=== PATIENT | male | born 1985 | race Caucasian/White ===

== ENCOUNTER 2018-08-30 18:46 | Inpatient (IN) | payer MEDICARE, OTHER ==
[2018-08-30] MEDS ORDERED: SODIUM CHLORIDE 1,000 ML IV STA (21:28)
--- NOTE | 2018-08-30 21:28 | PDOC ---
*Physical Exam - Vital Signs Last Vital Signs Temp Pulse Resp BP Pulse Ox 98.4 F 69 18 141/81 95 08/30/18 18:53 08/30/18 18:53 08/30/18 18:53 08/30/18 18:53 08/30/18 18:53 ED Treatment Course - LABORATORY CBC & Chemistry Diagram: 08/30/18 22:11 08/30/18 22:11 Medical Decision Making - Medical Decision Making 08/30/18 21:28 Patient seen by the advanced practice provider under my direct supervision. Ancillary testing reviewed as necessary. I agree with plan as outlined by the advanced practice provider. *DC/Admit/Observation/Transfer Diagnosis at time of Disposition: Kidney stone on right side Abdominal pain Qualifiers: Abdominal location: right lower quadrant Qualified Code(s): R10.31 - Right lower quadrant pain - Referrals - Patient Instructions - Post Discharge Activity
--- NOTE | 2018-08-30 21:28 | PDOC ---
History of Present Illness - General Chief Complaint: Pain, Acute Stated Complaint: STOMACH PAIN RIGHT SIDE Time Seen by Provider: 08/30/18 21:23 History Source: Patient - History of Present Illness Initial Comments: 08/30/18 23:05 33-year-old male complaining of right lower quadrant pain for the last 2 days with nausea, anorexia and RLQ pain x 2 worsening over the last two days. Denies fevers/chills, urinary symptoms, testicular pain, diarrhea or constipation. 08/30/18 23:10 Past History - Past Medical History Allergies/Adverse Reactions: Allergies Allergy/AdvReac Type Severity Reaction Status Date / Time No Known Allergies Allergy Verified 06/22/15 13:52 Home Medications: Ambulatory Orders Codeine/Butalbit/Acetamin/Caff [Fioricet *w/ Codeine*] 1 tab PO Q8H #30 capsule 06/22/15 Ondansetron [Zofran *Odt*] 8 mg SL TID #30 od.tablet 06/22/15 COPD: No DVT: No Dialysis: No - Surgical History Cardiac Surgery: No Gastric Stapling: No - Immunization History Immunization Up to Date: No - Suicide/Smoking/Psychosocial Hx Smoking History: Current every day smoker Have you smoked in the past 12 months: Yes Number of Cigarettes Smoked Daily: 10 Information on smoking cessation initiated: No Hx Alcohol Use: No Drug/Substance Use Hx: No Substance Use Type: None Review of Systems - Review of Systems Able to Perform ROS?: Yes Is the patient limited Estonian proficient: No HEENTM: No: Symptoms Reported, See HPI, Eye Pain, Blurred Vision, Tearing, Recent change in vision, Double Vision, Cataracts, Ear Pain, Ocular Prothesis, Ear Discharge, Nose Pain, Nose Congestion, Tinnitus, Nose Bleeding, Hearing Loss , Throat Pain, Throat Swelling, Mouth Pain, Dental Problems, Difficulty Swallowing, Mouth Swelling, Other Respiratory: No: Symptoms reported, See HPI, Cough, Orthopnea, Shortness of Breath, SOB with Exertion, SOB at Rest, Stridor, Wheezing, Productive cough, Hemoptysis, Other ABD/GI: Yes: Nausea, Vomiting, Abdominal cramping. No: Symptoms Reported, See HPI, Abdominal Distended, Abd. Pain w/ defecation, Blood Streaked Bowels, Constipated, Diarrhea, Difficulty Swallowing, Poor Appetite, Poor Fluid Intake, Rectal Bleeding, Indigestion, Tarry Stools, Other : No: Symptoms Reported, See HPI, Burning, Dysuria, Discharge, Frequency, Flank Pain, Hematuria, Incontinence, Pain, Urgency, Testicular Mass, Testicular Swelling, Lesions, Testicular Pain, Other Musculoskeletal: No: Symptoms Reported, See HPI, Back Pain, Gout, Joint Pain, Joint Swelling, Muscle Pain, Muscle Weakness, Neck Pain, Joint Stiffness, Other *Physical Exam - Vital Signs Last Vital Signs Temp Pulse Resp BP Pulse Ox 98.4 F 69 18 141/81 95 08/30/18 18:53 08/30/18 18:53 08/30/18 18:53 08/30/18 18:53 08/30/18 18:53 - Physical Exam General Appearance: Yes: Appropriately Dressed Respiratory/Chest: positive: Lungs Clear, Normal Breath Sounds Cardiovascular: positive: Regular Rhythm, Regular Rate Gastrointestinal/Abdominal: positive: Normal Bowel Sounds, Tender (RLQ pain), Soft Male Genitalia: positive: normal genitalia. negative: testicular tenderness, testicular mass, epididymus tender, inguinal hernia Musculoskeletal: positive: Normal Inspection. negative: CVA Tenderness Extremity: positive: Normal Capillary Refill, Normal Inspection, Normal Range of Motion Integumentary: positive: Normal Color, Dry, Warm Neurologic: positive: Fully Oriented, Alert, Normal Mood/Affect Moderate Sedation - Procedure Monitoring Vital Signs: Procedure Monitoring Vital Signs Temperature 98.4 F 08/30/18 18:53 Pulse Rate 69 08/30/18 18:53 Respiratory Rate 18 08/30/18 18:53 Blood Pressure 141/81 08/30/18 18:53 O2 Sat by Pulse Oximetry (%) 95 08/30/18 18:53 ED Treatment Course - LABORATORY CBC & Chemistry Diagram: 08/30/18 22:11 08/30/18 22:11 Progress Note - Progress Note Progress Note: RLQ pain P: CBC CMP morphine IVF ua CTAP Medical Decision Making - Medical Decision Making 08/31/18 00:[address] ward. recommends IV antibiotics strain all urine IVF flomax and pain control patient to be admitted for IV hydration, antibiotics, urology consult 08/31/18 01:15 patient signed out to Cherie AYALA/ Dr. Mckenzie *DC/Admit/Observation/Transfer Diagnosis at time of Disposition: Kidney stone on right side Abdominal pain Qualifiers: Abdominal location: right lower quadrant Qualified Code(s): R10.31 - Right lower quadrant pain - Discharge Dispostion Decision to Admit order: Yes - Referrals - Patient Instructions - Post Discharge Activity
[2018-08-30] MEDS ORDERED: ONDANSETRON 4 MG/2 ML VIAL IVPUSH ONE (21:30)
[2018-08-30] MEDS ORDERED: ONDANSETRON 4 MG/2 ML VIAL ONE (22:18)
[2018-08-30 22:29] LABS: BASO % 0.4 % (0-2.0); EOS % 0.4 % (0-4.5); HEMATOCRIT 43.1 % (35.4-49); HEMOGLOBIN 14.9 GM/dL (11.7-16.9); LYMPH % 16.6 % (8-40); MCH 30.9 pg (25.7-33.7); MCHC 34.7 g/dl (32.0-35.9); MEAN CELL VOLUME 89.3 fl (80-96); MEAN PLT VOLUME 8.8 fl (7.5-11.1); MONO % 9.6 % (3.8-10.2); PLATELET COUNT 313 K/MM3 (134-434); RBC 4.82 M/mm3 (4.00-5.60); RDW 13.7 % (11.9-15.9); WHITE BLOOD COUNT 19.9 K/mm3 (4.0-10.0)
[2018-08-30 22:31] LABS: URINE APPEARANCE CLEAR; URINE BILIRUBIN NEGATIVE (<2.0 mg/dL); URINE COLOR LTYELLOW; URINE GLUCOSE (UA) NEGATIVE (NEGATIVE); URINE KETONE TRACE (NEGATIVE); URINE LEUK ESTERASE NEGATIVE (NEGATIVE); URINE NITRITE NEGATIVE (NEGATIVE); URINE PROTEIN 1+ (NEGATIVE); URINE UROBILINOGEN NEGATIVE mg/dL (0.2-1.0)
[2018-08-30 22:47] LABS: URINE MUCUS RARE
[2018-08-30 22:48] LABS: ALBUMIN 4.2 g/dl (3.4-5.0); ALK PHOS 92 U/L (45-117); ANION GAP 9 MMOL/L (8-16); BILIRUBIN,TOTAL 0.6 mg/dL (0.2-1); BLOOD UREA NITROGEN 14 mg/dL (7-18); CALCIUM 9.1 mg/dL (8.5-10.1); CHLORIDE 102 mmol/L (98-107); CO2 28 mmol/L (21-32); CREATININE 1.8 mg/dL (0.55-1.3); GLUCOSE,RANDOM 89 mg/dL (74-106); LIPASE 89 U/L (73-393); POTASSIUM 4.3 mmol/L (3.5-5.1); SGOT/AST 24 U/L (15-37); SGPT/ALT 30 U/L (13-61); SODIUM 140 mmol/L (136-145); TOT PROT 7.6 g/dl (6.4-8.2)
[2018-08-30] MEDS ORDERED: morphine CARPU-JECT 4 MG/1 ML DISP.SYRIN IVPUSH ONE (23:02)
[2018-08-30] MEDS ORDERED: morphine SULFATE 4 MG/ML VIAL ONE (23:09)
[2018-08-31] MEDS ORDERED: TAMSULOSIN HCL 0.4 MG CAP PO ONE (00:14)
[2018-08-31] MEDS ORDERED: KETOROLAC TROMETHAMINE 30 MG/1 ML VIAL IVPUSH ONE ×2 (00:14→09:20)
[2018-08-31] MEDS ORDERED: KETOROLAC TROMETHAMINE 30 MG/1 ML VIAL ONE ×2 (00:21→09:20)
[2018-08-31] MEDS ORDERED: TAMSULOSIN HCL 0.4 MG CAP ONE ×2 (00:21→09:16)
[2018-08-31] MEDS ORDERED: CEFTRIAXONE 1,000 MG in DEXTROSE 5%-WATER - 50 ML IVPB ONE (00:49)
[2018-08-31] MEDS ORDERED: CEFTRIAXONE 1 GM/50 ML BAG ONE ×2 (01:13→10:22)
--- NOTE | 2018-08-31 01:16 | CON.GU ---
Consult Consult Specialty:: Reason for Consultation:: R UVJ calculus - History of Present Illness Chief Complaint: RLQ pain History of Present Illness: 33 yo m p/w RLQ pain , CTAP showed 2 mm R UVJ calculus and cons req. - History Source History Provided By: Patient, Medical Record Limitations to Obtaining History: No Limitations - Alcohol/Substance Use Hx Alcohol Use: No - Smoking History Smoking history: Current every day smoker Have you smoked in the past 12 months: Yes Aproximately how many cigarettes per day: 10 Home Medications - Allergies Allergies/Adverse Reactions: Allergies Allergy/AdvReac Type Severity Reaction Status Date / Time No Known Allergies Allergy Verified 06/22/15 13:52 - Home Medications Home Medications: Ambulatory Orders Codeine/Butalbit/Acetamin/Caff [Fioricet *w/ Codeine*] 1 tab PO Q8H #30 capsule 06/22/15 Ondansetron [Zofran *Odt*] 8 mg SL TID #30 od.tablet 06/22/15 Review of Systems - Review of Systems Gastrointestinal: reports: Abdominal Pain Genitourinary: reports: Flank Pain Physical Exam- Vital Signs: Vital Signs Temperature 98.4 F 08/30/18 18:53 Pulse Rate 69 08/30/18 18:53 Respiratory Rate 18 08/30/18 18:53 Blood Pressure 141/81 08/30/18 18:53 O2 Sat by Pulse Oximetry (%) 95 08/30/18 18:53 Gastrointestinal: Yes: Tenderness (RLQ) Renal/: Yes: CVA Tenderness - Right Labs: CBC, BMP 08/30/18 22:11 08/30/18 22:11 Imaging - Results Cat Scan: Report Reviewed Problem List - Problems (1) Ureteral calculus Assessment/Plan: ivfs at 150 ml/hr, analgesia, flomax, strain urine, ur cx, iv rocephin, RULL JJ stent insertion if stone fails to pass Code(s): N20.1 - CALCULUS OF URETER (2) Hydronephrosis concurrent with and due to calculi of kidney and ureter Code(s): N13.2 - HYDRONEPHROSIS WITH RENAL AND URETERAL CALCULOUS OBSTRUCTION (3) GABY (acute kidney injury) Code(s): N17.9 - ACUTE KIDNEY FAILURE, UNSPECIFIED (4) Leukocytosis Code(s): D72.829 - ELEVATED WHITE BLOOD CELL COUNT, UNSPECIFIED (5) Abdominal pain Code(s): R10.9 - UNSPECIFIED ABDOMINAL PAIN Qualifiers: Abdominal location: right lower quadrant Qualified Code(s): R10.31 - Right lower quadrant pain
[2018-08-31] MEDS: SODIUM CHLORIDE 1,000 ML IV SCH ×2 (01:52→22:03)
--- NOTE | 2018-08-31 04:15 | HP ---
CHIEF COMPLAINT: right lower quadrant pain PCP:Dr. Saurabh Fagan HISTORY OF PRESENT ILLNESS: 33 year old male wit no past medical or cardiac history who presents with right lower quadrant pain. He was found to have leukocytosis and acute renal insufficiency. CT scan of abdomen and pelvis demonstrated a 2mm kidney calculus. Patient denied fever, nausea, vomiting, or shortness of breath. He was given one dosage of IV Ceftriaxone and receiving IV fluids. Urology- has been consulted. Patient is being admitted for further medical management. - History Source patient Recent Travel:Denies PAST MEDICAL HISTORY:Denies PAST SURGICAL HISTORY:Denies Social History: Smoking:denies Alcohol:denies Drugs: denies Family History:noncontributory Allergies No Known Allergies Allergy (Verified 06/22/15 13:52) HOME MEDICATIONS: Home Medications Medication Instructions Recorded NK [No Known Home Medication] 08/31/18 REVIEW OF SYSTEMS CONSTITUTIONAL: Absent: fever, chills, diaphoresis, generalized weakness, malaise, loss of appetite, weight change HEENT: Absent: rhinorrhea, nasal congestion, throat pain, throat swelling, difficulty swallowing, mouth swelling, ear pain, eye pain, visual changes CARDIOVASCULAR: Absent: chest pain, syncope, palpitations, irregular heart rate, lightheadedness , peripheral edema RESPIRATORY: Absent: cough, shortness of breath, dyspnea with exertion, orthopnea, wheezing, stridor, hemoptysis GASTROINTESTINAL: Absent: + right lower abdominal pain, abdominal distension, nausea, vomiting, diarrhea, constipation, melena, hematochezia GENITOURINARY: Absent: dysuria, frequency, urgency, hesitancy, hematuria, flank pain, genital pain MUSCULOSKELETAL: Absent: myalgia, arthralgia, joint swelling, back pain, neck pain SKIN: Absent: rash, itching, pallor HEMATOLOGIC/IMMUNOLOGIC: Absent: easy bleeding, easy bruising, lymphadenopathy, frequent infections ENDOCRINE: Absent: unexplained weight gain, unexplained weight loss, heat intolerance, cold intolerance NEUROLOGIC: Absent: headache, focal weakness or paresthesias, dizziness, unsteady gait, seizure, mental status changes, bladder or bowel incontinence PSYCHIATRIC: Absent: anxiety, depression, suicidal or homicidal ideation, hallucinations. PHYSICAL EXAMINATION Vital Signs - 24 hr 08/30/18 18:53 Temperature 98.4 F Pulse Rate 69 Respiratory 18 Rate Blood Pressure 141/81 O2 Sat by Pulse 95 Oximetry (%) GENERAL: awake, alert, and fully oriented, no acute distress. HEAD: normal with no signs of trauma. EYES: pupils equal, round and reactive to light. NECK: normal range of motion, supple. LUNGS: Breath sounds equal, clear to auscultation bilaterally. No wheezes, and no crackles. no accessory muscle use. HEART: regular rate and rhythm, normal S1 and S2 without murmur, rub or gallop. ABDOMEN: soft, tender on light palpation to right mid and lower qudrant normoactive bowel sounds. MUSCULOSKELETAL: normal range of motion at all joints. No bony deformities or tenderness. No CVA tenderness. UPPER EXTREMITIES: 2+ pulses, warm, well-perfused. No cyanosis. No clubbing. No peripheral edema. LOWER EXTREMITIES: 2+ pulses, warm, well-perfused. No calf tenderness. No peripheral edema. NEUROLOGICAL: normal speech. PSYCHIATRIC: cooperative. SKIN: warm, dry, normal turgor, no rashes or lesions noted, normal capillary refill. Laboratory Results - last 24 hr 08/30/18 08/30/18 08/30/18 22:11 22:11 22:19 WBC 19.9 H RBC 4.82 Hgb 14.9 Hct 43.1 MCV 89.3 MCH 30.9 MCHC 34.7 RDW 13.7 Plt Count 313 MPV 8.8 Absolute Neuts (auto) 14.5 H Neutrophils % 73.0 Lymphocytes % 16.6 D Monocytes % 9.6 Eosinophils % 0.4 Basophils % 0.4 Nucleated RBC % 0 Sodium 140 Potassium 4.3 Chloride 102 Carbon Dioxide 28 Anion Gap 9 BUN 14 Creatinine 1.8 H Creat Clearance w eGFR 43.67 Random Glucose 89 Calcium 9.1 Total Bilirubin 0.6 AST 24 ALT 30 Alkaline Phosphatase 92 Total Protein 7.6 Albumin 4.2 Lipase 89 Urine Color Ltyellow Urine Appearance Clear Urine pH 5.0 Ur Specific Or[place] 1.014 Urine Protein 1+ H Urine Glucose (UA) Negative Urine Ketones Trace H Urine Blood 1+ H Urine Nitrite Negative Urine Bilirubin Negative Urine Urobilinogen Negative Ur Leukocyte Esterase Negative Urine WBC (Auto) 4 Urine RBC (Auto) <1 Urine Mucus Rare ASSESSMENT/PLAN: 33 year old male wit no past medical or cardiac history who presents with right mid- lower quadrant pain. He was found to have significant leukocytosis and acute renal insufficiency in the setting of a kidney stone. Leukocytosis in the setting of Kidney Stone Patient received one dosage of IV ceftriaxone. Continue with IV Ceftriaxone. Patient currently remains afebrile. Keep NPO, urinalysis negative, urine culture pending. Urology- has been consulted. ID consulted- Dr. Funk Continue with pain management with IV tylenol/morphine. Acute Renal Insufficiency Continue with IV fluids. C ontinue to monitor closely and if renal studies do not improve would consider renal consult. FEN NPO, IV fluids, monitor electrolytes DVT Prophylaxsis TEDS - History Source Visit type - Emergency Visit Emergency Visit: Yes ED Registration Date: 08/31/18 Care time: The patient presented to the Emergency Department on the above date and was hospitalized for further evaluation of their emergent condition. - New Patient This patient is new to me today: Yes Date on this admission: 08/31/18 - Critical Care Critical Care patient: No
[2018-08-31] MEDS ORDERED: ACETAMINOPHEN INJECTION 100 ML IVPB ONE (04:22)
[2018-08-31] MEDS: ACETAMINOPHEN 1000 MG/100 ML VIAL (NON FORMULARY) IVPB ONE ×2 (04:28→08:46)
[2018-08-31 08:02] LABS: ANION GAP 7 MMOL/L (8-16); BLOOD UREA NITROGEN 14 mg/dL (7-18); CALCIUM 7.9 mg/dL (8.5-10.1); CHLORIDE 105 mmol/L (98-107); CO2 25 mmol/L (21-32); CREATININE 1.7 mg/dL (0.55-1.3); GLUCOSE,RANDOM 83 mg/dL (74-106); MAGNESIUM 1.9 mg/dL (1.8-2.4); PHOSPHOROUS 4.2 mg/dL (2.5-4.9); SODIUM 138 mmol/L (136-145)
[2018-08-31 08:05] LABS: HEMATOCRIT 40.5 % (35.4-49); HEMOGLOBIN 13.9 GM/dL (11.7-16.9); MCH 30.9 pg (25.7-33.7); MCHC 34.4 g/dl (32.0-35.9); PLATELET COUNT 281 K/MM3 (134-434); RDW 13.9 % (11.9-15.9); WHITE BLOOD COUNT 15.1 K/mm3 (4.0-10.0)
[2018-08-31] MEDS: TAMSULOSIN HCL 0.4 MG CAP PO SCH (09:30)
[2018-08-31] MEDS: CEFTRIAXONE 1 GM in DEXTROSE 5%-WATER - 50 ML IVPB SCH (10:14)
--- NOTE | 2018-08-31 14:34 | PN ---
Physical Exam: SUBJECTIVE: Patient seen and examined at bedside- pateint is still feeling nauseous and having slight pain; denies any CP/SOB/fevers or chills OBJECTIVE: Vital Signs Period Temp Pulse Resp BP Sys/Mendoza Pulse Ox Last 24 Hr 98.4 F-98.6 F 61-89 18-20 136-150/78-91 95-100 GENERAL: The patient is awake, alert, and fully oriented, in no acute distress. EYES:PEERLA; EOMI; no scleral icterus. NECK: no JVD;no lymphadenopathy LUNGS: CTA B/L; no rales, rhonchi or wheezing HEART: Regular rate and rhythm, S1, S2 without murmur, rub or gallop. ABDOMEN: Soft, right lower quadrant tenderness upon palpation +BS MSK; no CVA tenderness EXTREMITIES: 2+ pulses, warm, well-perfused, no edema. NEUROLOGICAL: Cranial nerves II through XII grossly intact. Normal speech, gait not observed. PSYCH: Normal mood, normal affect. SKIN: Warm, dry, normal turgor, no rashes or lesions noted Laboratory Results - last 24 hr 08/30/18 08/30/18 08/30/18 22:11 22:11 22:19 WBC 19.9 H RBC 4.82 Hgb 14.9 Hct 43.1 MCV 89.3 MCH 30.9 MCHC 34.7 RDW 13.7 Plt Count 313 MPV 8.8 Absolute Neuts (auto) 14.5 H Neutrophils % 73.0 Lymphocytes % 16.6 D Monocytes % 9.6 Eosinophils % 0.4 Basophils % 0.4 Nucleated RBC % 0 Sodium 140 Potassium 4.3 Chloride 102 Carbon Dioxide 28 Anion Gap 9 BUN 14 Creatinine 1.8 H Creat Clearance w eGFR 43.67 Random Glucose 89 Calcium 9.1 Phosphorus Magnesium Total Bilirubin 0.6 AST 24 ALT 30 Alkaline Phosphatase 92 Total Protein 7.6 Albumin 4.2 Lipase 89 Urine Color Ltyellow Urine Appearance Clear Urine pH 5.0 Ur Specific [place] 1.014 Urine Protein 1+ H Urine Glucose (UA) Negative Urine Ketones Trace H Urine Blood 1+ H Urine Nitrite Negative Urine Bilirubin Negative Urine Urobilinogen Negative Ur Leukocyte Esterase Negative Urine WBC (Auto) 4 Urine RBC (Auto) <1 Urine Mucus Rare 08/31/18 08/31/18 05:30 06:30 WBC 15.1 H RBC 4.50 Hgb 13.9 Hct 40.5 MCV 90.0 MCH 30.9 MCHC 34.4 RDW 13.9 Plt Count 281 MPV 9.0 Absolute Neuts (auto) Neutrophils % Lymphocytes % Monocytes % Eosinophils % Basophils % Nucleated RBC % Sodium 138 Potassium 4.0 Chloride 105 Carbon Dioxide 25 Anion Gap 7 L BUN 14 Creatinine 1.7 H Creat Clearance w eGFR 46.65 Random Glucose 83 Calcium 7.9 L Phosphorus 4.2 Magnesium 1.9 Total Bilirubin AST ALT Alkaline Phosphatase Total Protein Albumin Lipase Urine Color Urine Appearance Urine pH Ur Specific [place] Urine Protein Urine Glucose (UA) Urine Ketones Urine Blood Urine Nitrite Urine Bilirubin Urine Urobilinogen Ur Leukocyte Esterase Urine WBC (Auto) Urine RBC (Auto) Urine Mucus Active Medications Generic Name Dose Route Start Last Admin Trade Name Freq PRN Reason Stop Dose Admin Acetaminophen 1,000 mg 08/31/18 09:33 Ofirmev Injection - IVPB Q6H PRN PAIN Sodium Chloride 1,000 mls @ 150 mls/hr 08/31/18 01:00 08/31/18 01:52 Normal Saline - IV 150 mls/hr ASDIR JOANNE Administration Ceftriaxone Sodium 1 gm/ 50 mls @ 100 mls/hr 08/31/18 10:00 08/31/18 10:14 Dextrose IVPB 100 mls/hr DAILY JOANNE Administration Protocol Tamsulosin HCl 0.4 mg 08/31/18 08:30 08/31/18 09:30 Flomax - PO 0.4 mg DAILY@0830 JOANNE Administration ASSESSMENT/PLAN: 33 year old male wit no past medical or cardiac history who presents with right mid- lower quadrant pain. He was found to have significant leukocytosis and acute renal insufficiency in the setting of a kidney stone. Leukocytosis in the setting of Kidney Stone Patient received one dosage of IV ceftriaxone. Continue with IV Ceftriaxone. Patient currently remains afebrile. Urology- has been consulted.- pateint going to stone removal tomorrow with dr ward ID consulted- Dr. Funk Continue with pain management with IV tylenol/morphine. Acute Renal Insufficiency Continue with IV fluids. C ontinue to monitor closely and if renal studies do not improve would consider renal consult. FEN NPO NS@150mls/hr monitor electrolytes DVT Prophylaxsis TEDS Problem List - Problems (1) GABY (acute kidney injury) Code(s): N17.9 - ACUTE KIDNEY FAILURE, UNSPECIFIED (2) Hydronephrosis concurrent with and due to calculi of kidney and ureter Code(s): N13.2 - HYDRONEPHROSIS WITH RENAL AND URETERAL CALCULOUS OBSTRUCTION (3) Leukocytosis Code(s): D72.829 - ELEVATED WHITE BLOOD CELL COUNT, UNSPECIFIED (4) Ureteral calculus Code(s): N20.1 - CALCULUS OF URETER Visit type - Emergency Visit Emergency Visit: Yes ED Registration Date: 08/31/18 Care time: The patient presented to the Emergency Department on the above date and was hospitalized for further evaluation of their emergent condition. - New Patient This patient is new to me today: Yes Date on this admission: 08/31/18 - Critical Care Critical Care patient: No
[2018-08-31] MEDS ORDERED: ONDANSETRON 4 MG/2 ML VIAL IVPUSH PRN (15:05)
[2018-08-31] MEDS: ACETAMINOPHEN 1000 MG/100 ML VIAL (NON FORMULARY) IVPB PRN ×2 (15:17→22:03)
--- NOTE | 2018-08-31 15:34 | PN ---
Teaching Attending Note Name of Resident: Radha Zimmer ATTENDING PHYSICIAN STATEMENT I saw and evaluated the patient. I reviewed the resident's note and discussed the case with the resident. I agree with the resident's findings and plan as documented. SUBJECTIVE: seen around 10 am No fever or chills. reports no abd apin at that time. some nausea but no vomiting in am . OBJECTIVE: NAD CV: RRR Lungs: CTAB Abd: soft, NT,ND, NL BS , no CVA tenderness Ext : no edema ASSESSMENT AND PLAN: 33 y/o man with no significant medical hx who presented with flank pain and was found to have obstructing R ureterovesicular junction stone with hydro. 1- R obstructing nephrolithiasis with hydronephrosis : pain imporved. he did not pass the stone yet. - cont IV hydration - strain all urines - monitor renal functin. - uro to lace a stent if no passage - empiric ceftriaxone due to persistent obstruction - cont tylenol for pain control - cont flomax 2- GABY: due to obstruction. - cont IVF 3- avoid chemical prophylalxis due tp possible procedure. 4- of note, patient left floor briefly and went to the bank across the street. upon return, he was told not to leave again otherwise he will not be accepted and has to go to ER. urine tox screen ordered HLOC.
--- NOTE | 2018-08-31 15:56 | PN ---
Progress Note (short form) - Note Progress Note: ID consult dictated imp/reccd Right UVJ stone right hydronephrosis leukocytosis GABY agree with rocephin/hydration urology evaluation Problem List - Problems (1) Kidney stone on right side Code(s): N20.0 - CALCULUS OF KIDNEY (2) Hydronephrosis concurrent with and due to calculi of kidney and ureter Code(s): N13.2 - HYDRONEPHROSIS WITH RENAL AND URETERAL CALCULOUS OBSTRUCTION (3) GABY (acute kidney injury) Code(s): N17.9 - ACUTE KIDNEY FAILURE, UNSPECIFIED (4) Leukocytosis Code(s): D72.829 - ELEVATED WHITE BLOOD CELL COUNT, UNSPECIFIED
[2018-08-31 18:34] LABS: COCAINE, UR NEGATIVE ng/ml (CUTOFF=300); METHADONE, UR NEGATIVE ng/ml (CUTOFF=300); PHENCYCLIDINE,URINE NEGATIVE ng/ml (CUTOFF=25); URINE AMPHETAMINES NEGATIVE ng/ml (CUTOFF=500); URINE BARBITURATES NEGATIVE ng/ml (CUTOFF=200); URINE BENZODIAZEPINES NEGATIVE ng/ml (CUTOFF=200)
[2018-08-31 18:40] LABS: OPIATES, URI POSITIVE ng/ml (CUTOFF=300)
[2018-08-31] MEDS ORDERED: MORPHINE SULFATE 2 MG/ML VIAL IVPUSH ONE (19:30)
[2018-08-31 20:06] VITALS: BMI 39.0
--- NOTE | 2018-08-31 20:39 | CONS ---
DATE OF CONSULTATION: DATE OF DICTATION: 08/31/2018 INFECTIOUS DISEASE CONSULTATION REQUESTING PHYSICIAN: Hospitalist Service CONSULTING PHYSICIAN: Leonila Bettencourt M.D. HISTORY OF PRESENT ILLNESS: This is a 33-year-old man who was admitted to the hospital with right lower quadrant pain for the last 2 days with nausea, anorexia. He had no fevers or chills. He had no urinary symptoms. He had a CAT scan of the abdomen and pelvis and that showed a right UPJ stone, right hydronephrosis. He had an elevated white count and elevated creatinine, and he was admitted for further evaluation. He is currently resting comfortably with some improvement in his pain. His nausea has resolved. He is receiving IV fluids. He was started on ceftriaxone. ALLERGIES: No known drug allergies. MEDICATION: He takes no medications as an outpatient. PAST SURGICAL HISTORY: He has never had any surgery. SOCIAL HISTORY: He smokes. 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 REVIEW OF SYSTEMS: He has never had kidney stones before, and his nausea has resolved. PHYSICAL EXAMINATION: VITAL SIGNS: He is afebrile. Temperature is 98.6, pulse 61, blood pressure 150/91, respiratory rate 19, he is saturating 99% on room air. HEENT: Normocephalic. Eyes are anicteric. NECK: Supple. LUNGS: Clear to auscultation. HEART: Regular rate and rhythm. ABDOMEN: Soft, nontender. He has minimal right lower quadrant pain on exam. EXTREMITIES: Without edema. LABORATORY: Notable for white count on admission of 19.9, today is 15.1, hemoglobin 13.1, platelets are 281, BUN and creatinine are 14 and 1.7. Urinalysis has 1+ blood. Urine culture is pending, and he has been started on ceftriaxone. IMPRESSION: In summary, this is a 33-year-old man with a right ureterovesical junction stone with right hydronephrosis, leukocytosis, and acute kidney injury. Would agree with Rocephin and hydration. Antibiotics have been started already, so the yield for blood cultures is low, especially if he has no fever. Urology evaluation is in process with plans for stent in the a.m. if he does not pass his stone. LEONILA BETTENCOURT M.D. [id number]
[2018-09-01] MEDS: ACETAMINOPHEN 1000 MG/100 ML VIAL (NON FORMULARY) IVPB PRN ×2 (03:47→09:37)
[2018-09-01] MEDS: SODIUM CHLORIDE 1,000 ML IV SCH (05:19)
[2018-09-01 07:47] LABS: HEMATOCRIT 39.5 % (35.4-49); HEMOGLOBIN 13.6 GM/dL (11.7-16.9); MCH 30.8 pg (25.7-33.7); MCHC 34.5 g/dl (32.0-35.9); MEAN CELL VOLUME 89.4 fl (80-96); MEAN PLT VOLUME 8.7 fl (7.5-11.1); PLATELET COUNT 263 K/MM3 (134-434); RBC 4.42 M/mm3 (4.00-5.60); RDW 13.4 % (11.9-15.9); WHITE BLOOD COUNT 15.3 K/mm3 (4.0-10.0)
[2018-09-01 08:04] LABS: ANION GAP 7 MMOL/L (8-16); BLOOD UREA NITROGEN 11 mg/dL (7-18); CALCIUM 8.2 mg/dL (8.5-10.1); CHLORIDE 105 mmol/L (98-107); CO2 27 mmol/L (21-32); CREATININE 1.5 mg/dL (0.55-1.3); GLUCOSE,RANDOM 79 mg/dL (74-106); SODIUM 139 mmol/L (136-145)
--- NOTE | 2018-09-01 08:34 | PN ---
Teaching Attending Note Name of Resident: Radha Zimmer ATTENDING PHYSICIAN STATEMENT I reviewed the resident's note and discussed the case with the resident. I agree with the resident's findings and plan as documented. SUBJECTIVE: Patient is in the operating room , by urologist. OBJECTIVE: Vital Signs Temperature 98.5 F 09/01/18 06:00 Pulse Rate 67 09/01/18 06:00 Respiratory Rate 20 09/01/18 06:00 Blood Pressure 118/66 09/01/18 06:00 O2 Sat by Pulse Oximetry (%) 95 08/31/18 21:00 PE: per the resident's note. since patient was taken to operating room and was discharged by the urologist. CBCD WBC 15.3 K/mm3 (4.0-10.0) H 09/01/18 06:50 RBC 4.42 M/mm3 (4.00-5.60) 09/01/18 06:50 Hgb 13.6 GM/dL (11.7-16.9) 09/01/18 06:50 Hct 39.5 % (35.4-49) 09/01/18 06:50 MCV 89.4 fl (80-96) 09/01/18 06:50 MCHC 34.5 g/dl (32.0-35.9) 09/01/18 06:50 RDW 13.4 % (11.9-15.9) 09/01/18 06:50 Plt Count 281 K/MM3 (134-434) 08/31/18 05:30 MPV 9.0 fl (7.5-11.1) 08/31/18 05:30 CMP Sodium 139 mmol/L (136-145) 09/01/18 06:50 Potassium 4.0 mmol/L (3.5-5.1) 09/01/18 06:50 Chloride 105 mmol/L (98-107) 09/01/18 06:50 Carbon Dioxide 27 mmol/L (21-32) 09/01/18 06:50 Anion Gap 7 MMOL/L (8-16) L 09/01/18 06:50 BUN 11 mg/dL (7-18) 09/01/18 06:50 Creatinine 1.5 mg/dL (0.55-1.3) H 09/01/18 06:50 Creat Clearance w eGFR 53.90 (>60) 09/01/18 06:50 Random Glucose 79 mg/dL (74-106) 09/01/18 06:50 Calcium 8.2 mg/dL (8.5-10.1) L 09/01/18 06:50 Total Bilirubin 0.6 mg/dL (0.2-1) 08/30/18 22:11 AST 24 U/L (15-37) 08/30/18 22:11 ALT 30 U/L (13-61) 08/30/18 22:11 Alkaline Phosphatase 92 U/L (45-117) 08/30/18 22:11 Total Protein 7.6 g/dl (6.4-8.2) 08/30/18 22:11 Albumin 4.2 g/dl (3.4-5.0) 08/30/18 22:11 Current Medications Generic Name Dose Route Start Last Admin Trade Name Freq PRN Reason Stop Dose Admin Acetaminophen 1,000 mg 08/31/18 09:33 09/01/18 03:47 Ofirmev Injection - IVPB 1,000 mg Q6H PRN Administration PAIN Sodium Chloride 1,000 mls @ 150 mls/hr 08/31/18 01:00 09/01/18 05:19 Normal Saline - IV Not Given ASDIR JOANNE Ceftriaxone Sodium 1 gm/ 50 mls @ 100 mls/hr 08/31/18 10:00 08/31/18 10:14 Dextrose IVPB 100 mls/hr DAILY JOANNE Administration Protocol Ondansetron HCl 4 mg 08/31/18 15:05 08/31/18 15:18 Zofran Injection IVPUSH 4 mg Q6H PRN Administration NAUSEA Tamsulosin HCl 0.4 mg 08/31/18 08:30 08/31/18 09:30 Flomax - PO 0.4 mg DAILY@0830 [facility] Administration Home Medications Medication Instructions Recorded NK [No Known Home Medication] 08/31/18 Laboratory Tests 08/30/18 08/30/18 08/31/18 22:11 22:11 05:30 WBC 19.9 H 15.1 H Absolute Neuts (auto) 14.5 H Creatinine 1.8 H Opiates Screen U Marijuana (THC) Screen 08/31/18 08/31/18 09/01/18 06:30 13:30 06:50 WBC 15.3 H Absolute Neuts (auto) Creatinine 1.7 H Opiates Screen Positive A* U Marijuana (THC) Screen Positive A* 09/01/18 06:50 WBC Absolute Neuts (auto) Creatinine 1.5 H Opiates Screen U Marijuana (THC) Screen ASSESSMENT AND PLAN: Patient is a 33 y/o man with no significant medical hx who presented with flank pain and was found to have obstructing R ureterovesicular junction stone with hydro. #POD #0 s/p R ureteroscopic laser lithotripsy and JJ stent insertion, patient was discharged home by urologist.
--- NOTE | 2018-09-01 09:09 | PN ---
Physical Exam: SUBJECTIVE: Patient seen and examined at bedside- no acute events overnight; patient had 1 episodes of vomiting overnight and pain but controlled with tylenol; denies CP/SOB/ OBJECTIVE: Vital Signs Period Temp Pulse Resp BP Sys/Mendoza Pulse Ox Last 24 Hr 98.0 F-98.6 F 61-74 19-20 118-150/45-91 95-99 GENERAL: The patient is awake, alert, and fully oriented, in slight acute distress. EYES:PEERLA; EOMI; no scleral icterus NECK: no JVD; no lymphadenopathy LUNGS: CTA B/L; no rales, rhonchi or wheezing. HEART: Regular rate and rhythm, S1, S2 without murmur, rub or gallop. ABDOMEN: Soft, nontender, nondistended, normoactive bowel sounds, no guarding, no rebound, no hepatosplenomegaly, no masses. MSK: no CVA tenderness EXTREMITIES: 2+ pulses, warm, well-perfused, no edema. PSYCH: Normal mood, normal affect. SKIN: Warm, dry, normal turgor, no rashes or lesions noted Laboratory Results - last 24 hr 08/31/18 09/01/18 09/01/18 13:30 06:50 06:50 WBC 15.3 H RBC 4.42 Hgb 13.6 Hct 39.5 MCV 89.4 MCH 30.8 MCHC 34.5 RDW 13.4 Sodium 139 Potassium 4.0 Chloride 105 Carbon Dioxide 27 Anion Gap 7 L BUN 11 Creatinine 1.5 H Creat Clearance w eGFR 53.90 Random Glucose 79 Calcium 8.2 L Phosphorus 3.0 Magnesium 2.0 Opiates Screen Positive A* Methadone Screen Negative Barbiturate Screen Negative Phencyclidine Screen Negative Ur Amphetamines Screen Negative MDMA (Ecstasy) Screen Negative Benzodiazepines Screen Negative Cocaine Screen Negative U Marijuana (THC) Screen Positive A* Active Medications Generic Name Dose Route Start Last Admin Trade Name Freq PRN Reason Stop Dose Admin Acetaminophen 1,000 mg 08/31/18 09:33 09/01/18 03:47 Ofirmev Injection - IVPB 1,000 mg Q6H PRN Administration PAIN Sodium Chloride 1,000 mls @ 150 mls/hr 08/31/18 01:00 09/01/18 05:19 Normal Saline - IV Not Given ASDIR JOANNE Ceftriaxone Sodium 1 gm/ 50 mls @ 100 mls/hr 08/31/18 10:00 08/31/18 10:14 Dextrose IVPB 100 mls/hr DAILY JOANNE Administration Protocol Ondansetron HCl 4 mg 08/31/18 15:05 08/31/18 15:18 Zofran Injection IVPUSH 4 mg Q6H PRN Administration NAUSEA Tamsulosin HCl 0.4 mg 08/31/18 08:30 08/31/18 09:30 Flomax - PO 0.4 mg DAILY@0830 JOANNE Administration ASSESSMENT/PLAN: 33 year old male wit no past medical or cardiac history who presents with right mid- lower quadrant pain. He was found to have significant leukocytosis and acute renal insufficiency in the setting of a kidney stone. Leukocytosis in the setting of Kidney Stone: WBC still elevated at 15.3 day 2 of cefrtriaxone patient going to OR today for stone removal with Dr. Linnette chou for pain and zofran for nusea Acute Renal Insufficiency Continue with IV fluids ns @150mls Cr downtrending: this am 1.5 (down from 1.8 on admission) FEN NPO NS@150mls/hr monitor electrolytes Problem List - Problems (1) GABY (acute kidney injury) Code(s): N17.9 - ACUTE KIDNEY FAILURE, UNSPECIFIED (2) Hydronephrosis concurrent with and due to calculi of kidney and ureter Code(s): N13.2 - HYDRONEPHROSIS WITH RENAL AND URETERAL CALCULOUS OBSTRUCTION (3) Leukocytosis Code(s): D72.829 - ELEVATED WHITE BLOOD CELL COUNT, UNSPECIFIED (4) Ureteral calculus Code(s): N20.1 - CALCULUS OF URETER Visit type - Emergency Visit Emergency Visit: Yes ED Registration Date: 08/31/18 Care time: The patient presented to the Emergency Department on the above date and was hospitalized for further evaluation of their emergent condition. - New Patient This patient is new to me today: No - Critical Care Critical Care patient: No
[2018-09-01] MEDS ORDERED: cefTRIAXone SODIUM 1 GM VIAL ONE (09:12)
[2018-09-01] MEDS ORDERED: DEXTROSE 5%-WATER - 50 ML IVPB ONE (09:13)
[2018-09-01] MEDS: CEFTRIAXONE 1 GM in DEXTROSE 5%-WATER - 50 ML IVPB SCH (09:35)
[2018-09-01] MEDS: TAMSULOSIN HCL 0.4 MG CAP PO SCH (09:38)
[2018-09-01] MEDS ORDERED: MIDAZOLAM HCL 2 MG/2 ML SINGLE DOSE VIAL ONE (12:37)
[2018-09-01] MEDS ORDERED: SUCCINYLCHOLINE CHLORIDE 200 MG/10 ML VIAL ONE (12:39)
[2018-09-01] MEDS ORDERED: LIDOCAINE HCL/PF 2% SDV 5ML VIAL ONE (12:39)
[2018-09-01] MEDS ORDERED: PROPOFOL 20 ML ONE ×4 (12:39)
[2018-09-01] MEDS ORDERED: GENTAMICIN SO4 80 MG/2 ML VIAL ONE (13:03)
[2018-09-01] MEDS ORDERED: KETOROLAC TROMETHAMINE 30 MG/1 ML VIAL ONE (13:03)
[2018-09-01] MEDS ORDERED: DEXAMETHASONE SOD PHOSPHATE 4 MG/1 ML VIAL ONE (13:03)
[2018-09-01] MEDS ORDERED: LIDOCAINE HCL 2% JELLY 10 ML CARTRIDGE ONE (13:17)
--- NOTE | 2018-09-01 13:31 | OP ---
Operative Note - Note: Operative Date: 09/01/18 Pre-Operative Diagnosis: R ureteral calculus Operation: R ureteroscopic laser lithotripsy and JJ stent insertion Findings: 3 mm R UVJ calculus Post-Operative Diagnosis: Same as Pre-op Surgeon: Robert Anglin Anesthesiologist/PCB DESIGN ENGINEER: Jaycee Nelson Anesthesia: General Estimated Blood Loss (mls): 0 Drains & Tubes with Location: 6 fr 24 cm R JJ stent Operative Report Dictated: Yes
[2018-09-01] MEDS ORDERED: GENTAMICIN SO4 80 MG/2 ML VIAL IVPB ONE (13:36)
[2018-09-01] MEDS ORDERED: SODIUM CHLORIDE 1,000 ML IV SCH (13:52)
[2018-09-01] MEDS ORDERED: ONDANSETRON 4 MG/2 ML VIAL IVPUSH PRN (13:52)
[2018-09-01] MEDS ORDERED: LACTATED RINGERS SOLUTION 1,000 ML IV SCH (16:00)
[2018-09-01 16:27] VITALS: BP 140/80; PULSE 70; TEMP 98.9
[2018-09-02] MEDS ORDERED: TAMSULOSIN HCL 0.4 MG CAP PO SCH (08:30)
[2018-09-02] MEDS ORDERED: CEFTRIAXONE 1 GM in DEXTROSE 5%-WATER - 50 ML IVPB SCH (10:00)
== END 2018-09-01 16:39 | disposition home or self-care (01) | DRG 446 ==
LOC: JER 18:46 → JERBED 08-31 01:15 → J5S 08-31 13:49
PROVIDERS: ADMIT Internal Medicine; ATTEND Internal Medicine
PROC: 0TC68ZZ Extirpation of Matter from Right Ureter, Via Natural or Artificial Opening Endoscopic (ICD-10-PCS; principal; 2018-09-01 13:30)
PROC: 0T768DZ Dilation of Right Ureter with Intraluminal Device, Via Natural or Artificial Opening Endoscopic (ICD-10-PCS; 2018-09-01 13:30)
DX: N13.2 Hydronephrosis with renal and ureteral calculous obstruction (principal); N17.9 Acute kidney failure, unspecified; D72.829 Elevated white blood cell count, unspecified; E66.8 Other obesity; Z68.39 Body mass index [BMI] 39.0-39.9, adult
CPT/HCPCS: 36415; 74176-TC; 76000-TC-FY; 80048; 80053; 80307; 81003; 81015; 83690; 83735; 84100; 85025; 85027; 87086; 94760; 99284-25; J0131; J7030; Q9967

== ENCOUNTER 2018-09-02 12:19 | Emergency (ER) | payer SELFPAY ==
[2018-09-02 12:53] VITALS: BP 139/72; PULSE 98; TEMP 98.2; BMI 34.9
--- NOTE | 2018-09-02 13:28 | PDOC ---
*Physical Exam - Vital Signs Last Vital Signs Temp Pulse Resp BP Pulse Ox 98.2 F 98 H 18 139/72 98 09/02/18 12:51 09/02/18 12:51 09/02/18 12:51 09/02/18 12:51 09/02/18 12:51 Medical Decision Making - Medical Decision Making 09/02/18 13:28 33 yo M s/p stent placement Pt presents to the ER for evaluation Dr Anglin contacted Pt to follow up in the office Pt seen by Midlevel Provider under my direct supervision I agree with plan as outlined by Midlevel Provider 09/02/18 14:35 *DC/Admit/Observation/Transfer Diagnosis at time of Disposition: History of urethral stent - Discharge Dispostion Disposition: HOME Condition at time of disposition: Stable - Referrals Referrals: Robert Anglin MD [Staff Physician] - - Patient Instructions Additional Instructions: Please follow up with Dr. Anglin at the office to have the stent removed Return to the ED for fever, worsening pain, or if you have any changes in your symptoms. - Post Discharge Activity Forms/Work/School Notes: Back to Work
--- NOTE | 2018-09-02 14:18 | PDOC ---
History of Present Illness - General Chief Complaint: Pain Stated Complaint: PAIN Time Seen by Provider: 09/02/18 13:12 History Source: Patient Exam Limitations: No Limitations - History of Present Illness Initial Comments: 09/02/18 14:34 Patient presents to the ER for evaluation of a ureteral stent placed by urology yesterday during a lithotripsy procedure. He was told that the stent has to come out today. Patient requesting removal of the stent.He states that he was told to return to the urologist office to have the stent removed, however patient states that he cannot afford to go to the urologist at this time is his medical insurance has lapsed. Denies back pain, fever. Admits to hematuria associated from the procedure. Past History - Travel Traveled outside of the country in the last 30 days: No Close contact w/someone who was outside of country & ill: No - Past Medical History Allergies/Adverse Reactions: Allergies Allergy/AdvReac Type Severity Reaction Status Date / Time No Known Allergies Allergy Verified 06/22/15 13:52 Home Medications: Ambulatory Orders Oxycodone HCl/Acetaminophen [Percocet 5-325 mg Tablet] 1 - 2 tab PO Q4H PRN 7 Days #42 tablet MDD 8 09/01/18 Sulfamethoxazole/Trimethoprim [Bactrim Ds Tablet] 1 each PO BID 14 Days #14 tablet 09/01/18 Anemia: No Asthma: No Cancer: No Cardiac Disorders: No CVA: No COPD: No CHF: No DVT: No Dementia: No Diabetes: No Dialysis: No GI Disorders: No Disorders: No HTN: No Hypercholesterolemia: No Liver Disease: No Seizures: No Thyroid Disease: No - Surgical History Abdominal Surgery: No Appendectomy: No Cardiac Surgery: No Cholecystectomy: No Gastric Stapling: No Lung Surgery: No Neurologic Surgery: No Orthopedic Surgery: No - Immunization History Immunization Up to Date: No - Suicide/Smoking/Psychosocial Hx Smoking History: Current every day smoker Have you smoked in the past 12 months: Yes Number of Cigarettes Smoked Daily: 10 Information on smoking cessation initiated: No 'Breaking Loose' booklet given: 08/31/18 Hx Alcohol Use: No Drug/Substance Use Hx: Yes Substance Use Type: Marijuana Hx Substance Use Treatment: No Review of Systems - Review of Systems Able to Perform ROS?: Yes Comments:: 09/02/18 14:35 CONSTITUTIONAL: Absent: fever, chills, diaphoresis, generalized weakness, malaise, loss of appetite HEENT: Absent: rhinorrhea, nasal congestion, throat pain, throat swelling, difficulty swallowing, mouth swelling, ear pain, eye pain, visual Changes CARDIOVASCULAR: Absent: chest pain, loss of consciousness, palpitations, irregular heart rate, peripheral edema RESPIRATORY: Absent: cough, shortness of breath, dyspnea with exertion, orthopnea, wheezing, stridor, hemoptysis GASTROINTESTINAL: Absent: abdominal pain, abdominal distension, nausea, vomiting, diarrhea, constipation, melena, hematochezia GENITOURINARY: Present: hematuria Absent: dysuria, frequency, urgency, hesitancy, flank pain, genital pain MUSCULOSKELETAL: Absent: myalgia, arthralgia, joint swelling SKIN: Absent: rash, itching, pallor HEMATOLOGIC/IMMUNOLOGIC: Absent: easy bleeding, easy bruising, lymphadenopathy, frequent infections ENDOCRINE: Absent: unexplained weight gain, unexplained weight loss, heat intolerance, cold intolerance NEUROLOGIC: Absent: headache, focal weakness or paresthesias, dizziness, unsteady gait, seizure, mental status changes, bladder or bowel incontinence PSYCHIATRIC: Absent: anxiety, depression, suicidal or homicidal ideation, hallucinations. Is the patient limited [place] proficient: No *Physical Exam - Vital Signs Last Vital Signs Temp Pulse Resp BP Pulse Ox 98.2 F 98 H 18 139/72 98 09/02/18 12:51 09/02/18 12:51 09/02/18 12:51 09/02/18 12:51 09/02/18 13:42 - Physical Exam Comments: 09/02/18 14:35 GENERAL: Well developed, well nourished. Awake and alert. No acute distress. ABDOMINAL: Soft. Non-tender. Non-distended. No rebound or guarding. No organomegaly. Normoactive bowel sounds. : Ureteral stent strings in place MUSCULOSKELETAL Normal range of motion at all joints. No bony deformities or tenderness. No CVA tenderness. EXTREMITIES: No cyanosis. No clubbing. No edema. No calf tenderness. SKIN: Warm and dry. Normal capillary refill. No rashes. No jaundice. NEUROLOGICAL: Alert, awake, appropriate. Cranial nerves 2-12 intact. No deficits to light touch and temperature in face, upper extremities and lower extremities. No motor deficits in the in face, upper extremities and lower extremities. Normoreflexic in the upper and lower extremities. Normal speech. Toes are down- going bilaterally. Gait is normal without ataxia. PSYCHIATRIC: Cooperative. Good eye contact. Appropriate mood and affect. 09/02/18 18:38 Moderate Sedation - Procedure Monitoring Vital Signs: Procedure Monitoring Vital Signs Temperature 98.2 F 09/02/18 12:51 Pulse Rate 98 H 09/02/18 12:51 Respiratory Rate 18 09/02/18 12:51 Blood Pressure 139/72 09/02/18 12:51 O2 Sat by Pulse Oximetry (%) 98 09/02/18 13:42 Medical Decision Making - Medical Decision Making 09/02/18 14:12 Patient presents to the ER for evaluation of a ureteral stent placed by urology yesterday during a lithotripsy procedure. Patient requesting removal of the stent. On exam 2 strings present at the head of the penis. No discharge or hematuria noted. Call placed to Dr. Anglin; surgeon who performed the lithotripsy. Dr. Anglin states that he does not want the emergency department removing the stent and the patient should return to the office today to have it taken out. Vital signs stable, patient is afebrile. We'll discharge home I discussed the physical exam findings, ancillary test results and final diagnoses with the patient. I answered all of the patient's questions. The patient was satisfied with the care received and felt comfortable with the discharge plan and treatment plan. The Patient agrees to follow up with the primary care physician/specialist within 24-72 hours. Return precautions were given. 09/02/18 14:42 Pt left the ED prior to getting discharge papers. *DC/Admit/Observation/Transfer Diagnosis at time of Disposition: History of urethral stent - Discharge Dispostion Disposition: ELOPED Condition at time of disposition: Stable Decision to Admit order: No - Referrals Referrals: Robert Anglin MD [Staff Physician] - - Patient Instructions Additional Instructions: Please follow up with Dr. Anglin at the office to have the stent removed Return to the ED for fever, worsening pain, or if you have any changes in your symptoms. - Post Discharge Activity Forms/Work/School Notes: Back to Work
== END 2018-09-02 14:57 | disposition left against medical advice (07) ==
LOC: JER 12:19
DX: Z46.6 Encounter for fitting and adjustment of urinary device (principal); Z96.0 Presence of urogenital implants; Z98.890 Other specified postprocedural states
CPT/HCPCS: 99282-25

== ENCOUNTER 2018-10-27 08:24 | Emergency (ER) | payer MEDICARE, OTHER ==
[2018-10-27 08:34] VITALS: BP 129/81; PULSE 81; TEMP 98.1; BMI 34.9
--- NOTE | 2018-10-27 09:29 | PDOC ---
History of Present Illness - General Chief Complaint: Cold Symptoms Stated Complaint: COLD LIKE SYMPTOMS Time Seen by Provider: 10/27/18 08:55 History Source: Patient Exam Limitations: No Limitations - History of Present Illness Initial Comments: 10/27/18 09:23 Patient is here with young daughter with complaints of cough, runny nose, postnasal drainage. Is smoker, has taken no medication for relief of same. 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 States multiple people at work have been ill with a cold. Plaints of pain worse in the morning when he wakes up with copious postnasal drainage. 10/27/18 10:04 Timing/Duration: reports: getting worse Severity: reports: mild, moderate Associated Symptoms: reports: denies symptoms, fever/chills, nasal congestion, nasal drainage Past History - Travel Traveled outside of the country in the last 30 days: No Close contact w/someone who was outside of country & ill: No - Past Medical History Allergies/Adverse Reactions: Allergies Allergy/AdvReac Type Severity Reaction Status Date / Time No Known Allergies Allergy Verified 10/27/18 08:34 Home Medications: Ambulatory Orders Cetirizine HCl [Zyrtec -] 10 mg PO DAILY #30 tablet 10/27/18 Anemia: No Asthma: No Cancer: No Cardiac Disorders: No CVA: No COPD: No CHF: No DVT: No Dementia: No Diabetes: No Dialysis: No GI Disorders: No Disorders: No HTN: No Hypercholesterolemia: No Liver Disease: No Seizures: No Thyroid Disease: No - Surgical History Abdominal Surgery: No Appendectomy: No Cardiac Surgery: No Cholecystectomy: No Gastric Stapling: No Lung Surgery: No Neurologic Surgery: No Orthopedic Surgery: No - Immunization History Immunization Up to Date: No - Suicide/Smoking/Psychosocial Hx Smoking History: Never smoked Have you smoked in the past 12 months: Yes Number of Cigarettes Smoked Daily: 10 Information on smoking cessation initiated: No 'Breaking Loose' booklet given: 08/31/18 Hx Alcohol Use: No Drug/Substance Use Hx: No Substance Use Type: Marijuana Hx Substance Use Treatment: No Review of Systems - Review of Systems Able to Perform ROS?: Yes Is the patient limited Lebanese proficient: Yes Constitutional: Yes: Symptoms Reported, See HPI, Malaise. No: Fever HEENTM: Yes: Symptoms Reported, See HPI, Nose Congestion Respiratory: Yes: Symptoms reported, See HPI, Cough (moist nonproductive). No: Wheezing All Other Systems: Reviewed and Negative *Physical Exam - Vital Signs Last Vital Signs Temp Pulse Resp BP Pulse Ox 98.1 F 81 18 129/81 97 10/27/18 08:31 10/27/18 08:31 10/27/18 08:31 10/27/18 08:31 10/27/18 08:31 - Physical Exam General Appearance: Yes: Nourished, Appropriately Dressed, Apparent Distress, Mild Distress HEENT: positive: KAMALA, Normal ENT Inspection, TMs Normal (congested but landmark easily visualized), Rhinorrhea, Sinus Tenderness Neck: positive: Supple. negative: Tender, Lymphadenopathy (R), Lymphadenopathy (L) Respiratory/Chest: positive: Lungs Clear, Normal Breath Sounds. negative: Wheezing Musculoskeletal: positive: Normal Inspection Integumentary: positive: Normal Color, Dry, Warm Neurologic: positive: senior technical recruiter II-XII NML intact, Fully Oriented, Alert, Normal Mood/ Affect, Normal Response, Motor Strength 5/5 Progress Note - Progress Note Progress Note: ALLERGIC rhinitis, will treat with antihistamines and conservative measures. *DC/Admit/Observation/Transfer Diagnosis at time of Disposition: Allergic rhinitis Qualifiers: Allergic rhinitis trigger: unspecified Allergic rhinitis seasonality: seasonal Qualified Code(s): J30.2 - Other seasonal allergic rhinitis - Discharge Dispostion Disposition: HOME Condition at time of disposition: Stable Decision to Admit order: No - Prescriptions Prescriptions: Cetirizine HCl [Zyrtec -] 10 mg PO DAILY #30 tablet - Referrals Referrals: Nils Carter MD [Primary Care Provider] - - Patient Instructions Printed Discharge Instructions: DI for Allergic Rhinitis Additional Instructions: Rest, drink lots of fluids: Teas, water, soups Saltwater gargles. Consider humidifier in room at night Steamy showers/seem to face break up mucus Avoid contact with allergens, exposure to pollens, close windows on a windy day Lots of handwashing and good hygiene Continue [id number] medications for symptomatic relief- may use allergic eyedrops for itching I Continue antihistamines daily until pollen season is over; Zyrtec, Claritin, Poppy during the daytime and Benadryl at nighttime as will make sleepy Tylenol or Motrin for fever and pain Followup with private physician in one to 2 days as needed Consider following up with an adaptive physical education specialist/cake froster for skin testing and possible allergy shots Return to emergency department for worsened symptoms, fevers, dehydration - Post Discharge Activity Forms/Work/School Notes: Back to Work
== END 2018-10-27 10:39 | disposition home or self-care (01) ==
LOC: JERFT 08:24
DX: J30.2 Other seasonal allergic rhinitis (principal); F17.210 Nicotine dependence, cigarettes, uncomplicated
CPT/HCPCS: 99281-25

== ENCOUNTER 2025-01-04 01:07 | Emergency (ER) | payer OTHER ==
[2025-01-04 01:32] VITALS: BP 124/86; PULSE 84; RESP 18; TEMP 99; BMI 35.4
== END 2025-01-04 02:36 | disposition home or self-care (01) ==
LOC: JER 01:07
DX: R20.0 Anesthesia of skin (principal); R20.2 Paresthesia of skin
CPT/HCPCS: 99283-25

== ENCOUNTER 2025-02-05 21:55 | Emergency (ER) | payer OTHER ==
[2025-02-05 22:02] VITALS: BP 130/80; PULSE 69; RESP 17; TEMP 97.9; BMI 34.9
[2025-02-05] MEDS ORDERED: FLUTICASONE PROP 0.05% 16 GM NASAL SPRAY NS ONE (22:40)
== END 2025-02-05 23:25 | disposition home or self-care (01) ==
LOC: JER 21:55
DX: R10.32 Left lower quadrant pain (principal); R22.0 Localized swelling, mass and lump, head
CPT/HCPCS: 99283-25